=== PATIENT | female | born 1995 | race Two or more races ===

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

== ENCOUNTER 2017-07-17 17:12 | Emergency (ER) | payer OTHER ==
[~2017-07-17] VITALS: Ht 162.6 cm; Wt 50.0 kg
[2017-07-17] MEDS ORDERED: PENI500T (17:29)
[2017-07-17] MEDS ORDERED: ACETAMINOPHEN-COD (17:29)
[2017-07-17] MEDS ORDERED: TRI-LO-MARZIA (17:29)
[2017-07-17] MEDS ORDERED: ONDANSETRON 4 MG ORAL DISINTEGRATING TAB (S0181) PO ONE (20:00)
[2017-07-17] MEDS ORDERED: ZOFR4TAB3 PO (20:47)
[2017-07-17 20:52] VITALS: BP 124/70
== END 2017-07-17 21:06 | disposition home or self-care (01) ==
LOC: M ED 17:12
DX: R11.2 Nausea with vomiting, unspecified (principal); T36.95XA Adverse effect of unspecified systemic antibiotic, initial encounter; X58.XXXA Exposure to other specified factors, initial encounter; Y92.89 Other specified places as the place of occurrence of the external cause; Y93.89 Activity, other specified; Y99.8 Other external cause status; Z79.3 Long term (current) use of hormonal contraceptives

== ENCOUNTER 2017-08-31 09:05 | Emergency (ER) | payer OTHER ==
[2017-08-31 10:58] LABS: INFLUENZA A AMPLIFICATION NEGATIVE (NEGATIVE); INFLUENZA B AMPLIFICATION NEGATIVE (NEGATIVE)
== END 2017-08-31 11:57 | disposition home or self-care (01) ==
LOC: M ED 09:05
DX: J06.9 Acute upper respiratory infection, unspecified (principal); Z79.3 Long term (current) use of hormonal contraceptives
CPT/HCPCS: 71046

== ENCOUNTER 2017-11-25 19:27 | Emergency (ER) | payer OTHER ==
[2017-11-25 21:02] LABS: INFLUENZA A AMPLIFICATION NEGATIVE (NEGATIVE); INFLUENZA B AMPLIFICATION NEGATIVE (NEGATIVE); RSV AMPLIFICATION NEGATIVE (NEGATIVE)
== END 2017-11-25 21:18 | disposition home or self-care (01) ==
LOC: M ED 19:27
DX: J32.9 Chronic sinusitis, unspecified (principal)
CPT/HCPCS: 71046

== ENCOUNTER → 2018-11-30 | Outpatient (CLI) | payer OTHER ==
[~2018-11-30] MED LIST: ACETAMINOPHEN-COD; CHERSYP3 PO; PENI500T; TESS100C PO; TRI-LO-MARZIA; ZITHTAB PO; ZOFR4TAB14 PO
--- NOTE | 2018-11-30 12:14 | REP ---
CHEST, TWO VIEWS: There is no evidence of acute infiltrate. No pleural effusion is seen. The heart is normal in size. The mediastinal silhouette is unremarkable. The visualized osseous structures are intact. IMPRESSION: No acute pulmonary disease. Electronically Signed by Rios Shirley MD 11/30/2018 03:47 P
== END ==
LOC: M LRY 10:31
PROVIDERS: ATTEND Nurse Practitioner Family
DX: R06.02 Shortness of breath (principal)
CPT/HCPCS: 71046; 94640; G0463

== ENCOUNTER → 2019-03-24 | Outpatient (CLI) | payer OTHER ==
--- NOTE | 2019-03-25 06:46 | REP ---
KUB ABDOMEN AND PELVIS: Two KUB films of the abdomen and pelvis performed. There is fecal retention with a moderate amount of fecal material throughout the colon more so on the right than on the left. No dilated small bowel loops are seen. No abnormal calcifications are seen. IMPRESSION: Moderate fecal material in the colon, predominantly on the right. Electronically Signed by Rios Shirley MD 03/25/2019 11:52 P
== END ==
LOC: M LRY 16:52
PROVIDERS: ATTEND Physician Assistant
DX: K59.00 Constipation, unspecified (principal); R10.84 Generalized abdominal pain
CPT/HCPCS: 74018; 81002; 81025; G0463

== ENCOUNTER 2019-10-01 16:10 | Emergency (ER) | payer OTHER ==
[~2019-10-01] VITALS: Ht 162.6 cm; Wt 61.3 kg
[~2019-10-01 16:10] MED LIST changes: -ESCI10TA2 PO; -PRED20TA PO; -PROV108A INH
[2019-10-01] MEDS ORDERED: ESCI10TA2 PO (16:19)
[2019-10-01 16:54] LABS: BASO % 0.3 % (0.0-1.0); EOS # 0.1 10^3/uL (0.0-0.5); EOS % 0.5 % (0.0-3.0); HEMATOCRIT 44.8 % (36.0-47.0); HEMOGLOBIN 15.5 g/dl (12.0-15.5); LYMPH # 1.1 10^3/uL (1.5-5.0); LYMPH % 10.9 % (24.0-44.0); MEAN CORPUSCULAR HEMOGLOBIN 29.9 pg (27.0-33.0); MEAN CORPUSCULAR HGB CONC 34.6 g/dl (32.0-36.5); MEAN CORPUSCULAR VOLUME 86.5 fl (80.0-96.0); MONO # 0.5 10^3/uL (0.0-0.8); MONO % 5.3 % (0.0-5.0); NEUTROPHILS # 8.1 10^3/uL (1.5-8.5); NEUTROPHILS % 82.6 % (36.0-66.0); PLATELET COUNT, AUTOMATED 282 10^3/uL (150-450); RED BLOOD COUNT 5.18 10^6/uL (4.00-5.40); WHITE BLOOD COUNT 9.8 10^3/uL (4.0-10.0)
[2019-10-01 17:12] LABS: HCG, SERUM QUALITATIVE NEGATIVE (NEGATIVE)
[2019-10-01 17:15] LABS: INFLUENZA A AMPLIFICATION NEGATIVE (NEGATIVE); INFLUENZA B AMPLIFICATION NEGATIVE (NEGATIVE)
[2019-10-01 17:27] LABS: BLOOD UREA NITROGEN 8 MG/DL (7-18); CARBON DIOXIDE LEVEL 24 MEQ/L (21-32); CHLORIDE LEVEL 106 MEQ/L (98-107); CK-MB VALUE MASS < 1.0 NG/ML (<3.6); CPK CREATINE PHOSPHOKINASE 130 U/L (26-192); CREATININE FOR GFR 0.76 MG/DL (0.55-1.30); GLOMERULAR FILTRATION RATE > 60.0 (>60); GLUCOSE, FASTING 79 MG/DL (70-100); MB/CK RELATIVE INDEX 0.77 (< OR =4); POTASSIUM SERUM 3.7 MEQ/L (3.5-5.1); SODIUM LEVEL 139 MEQ/L (136-145); TROPONIN I < 0.02 NG/ML (< 0.10)
[2019-10-01] MEDS ORDERED: IBUPROFEN 600 MG TAB PO ONE (18:00)
[2019-10-01] MEDS ORDERED: ISOVUE-370 76% 100ML VIAL (Q9967) As Ordered ONE (18:27)
--- NOTE | 2019-10-01 18:29 | REP ---
Chest x-ray: Two views. History: Fever and cough . Comparison study: Comparison study November 30, 2018 . Findings: The lungs are well inflated and free of infiltrate. The pleural angles are sharp. The heart size is normal. Pulmonary vasculature is not increased. No significant bony abnormality is seen. EKG monitoring electrodes are seen. Impression: Negative chest x-ray. Electronically Signed by Matthew Valenzuela MD 10/01/2019 06:21 P
[2019-10-01] MEDS ORDERED: NS 1,000 ML IV ONE (18:30)
--- NOTE | 2019-10-01 18:49 | REPVR ---
PROCEDURE INFORMATION: Exam: CT Angiography Chest With Contrast Exam date and time: 10/01/2019 6:36 PM Age: 23 years old Clinical indication: Cough and shortness of breath; Additional info: Cough, shortness of breath TECHNIQUE: Imaging protocol: Computed tomographic angiography of the chest with intravenous contrast. 3D rendering: MIP and/or 3D reconstructed images were created by the technologist. Radiation optimization: All CT scans at this facility use at least one of these dose optimization techniques: automated exposure control; mA and/or kV adjustment per patient size (includes targeted exams where dose is matched to clinical indication); or iterative reconstruction. Contrast material: ISOVUE 370; Contrast volume: 75 ml; Contrast route: IV; COMPARISON: CR Chest, 2 view PA, Lat 10/01/2019 6:10 PM FINDINGS: Pulmonary arteries: Normal. No pulmonary emboli. Aorta: Unremarkable. No aortic aneurysm. No aortic dissection. Lungs: Unremarkable. No consolidation. No masses. Pleural space: Unremarkable. No pneumothorax. No pleural effusion. Heart: Unremarkable. No cardiomegaly. No pericardial effusion. Lymph nodes: Unremarkable. No enlarged lymph nodes. Bones/joints: Unremarkable. No acute fracture. Soft tissues: Unremarkable. IMPRESSION: No acute findings. Electronically signed by: Blake Hope On 10/01/2019 18:49:27 PM
[2019-10-01 20:43] VITALS: BP 111/60
[2019-10-01] MEDS ORDERED: ALBUTEROL SULFATE 2.5 MG/0.5 ML INH NEB SOLN INH ONE (20:45)
[2019-10-01] MEDS ORDERED: PROV108A INH (20:58)
[2019-10-01] MEDS ORDERED: PRED20TA PO (20:58)
[2019-10-01] MEDS ORDERED: predniSONE 20 MG TAB As Ordered ONE (21:00)
--- NOTE | 2019-10-02 07:04 | ECGEPIP ---
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
== END 2019-10-01 20:50 | disposition home or self-care (01) ==
LOC: M ED 16:10 → EDBD 16:10 → M ED 20:50
DX: J06.9 Acute upper respiratory infection, unspecified (principal); I45.19 Other right bundle-branch block; R11.0 Nausea; R05 Cough; R07.9 Chest pain, unspecified; R50.9 Fever, unspecified; J45.909 Unspecified asthma, uncomplicated; Z79.3 Long term (current) use of hormonal contraceptives
CPT/HCPCS: 71046; 71275; 80048; 82550; 82553; 84443; 84484; 84703; 85025; 85379; 87502; 87804; 93005; 93041; 94640; 94760; 96360; 99285; G0463; Q9967

== ENCOUNTER → 2019-10-01 | Outpatient (CLI) | payer OTHER ==
[~2019-10-01] MED LIST changes: +ESCI10TA2 PO; +PRED20TA PO; +PROV108A INH
== END ==
LOC: M LRY 15:07
PROVIDERS: ATTEND Nurse Practitioner Family
DX: R07.1 Chest pain on breathing (principal); Z53.8 Procedure and treatment not carried out for other reasons